=== PATIENT | male | born 1970 | race Caucasian/White ===

== ENCOUNTER 2017-03-17 16:10 | Emergency (ER) | payer BC ==
[2017-03-17] MEDS ORDERED: Morphine 2 MG/ML Syringe IVPUSH ONE ×2 (16:20→16:59)
[2017-03-17] MEDS ORDERED: Ondansetron 4 MG/2 ML SDV IVPUSH ONE (16:21)
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
[2017-03-17] MEDS ORDERED: Cyclobenzaprine 10 MG Tab PO ONE (16:59)
[2017-03-17 17:06] VITALS: BP 126/71
[2017-03-17] MEDS ORDERED: Ketorolac 30 MG/ML SDV IVPUSH ONE (17:55)
== END 2017-03-17 20:09 | disposition home or self-care (01) ==
LOC: JP.ED 16:10
DX: S32.020A Wedge compression fracture of second lumbar vertebra, initial encounter for closed fracture (principal); F17.210 Nicotine dependence, cigarettes, uncomplicated; Z98.890 Other specified postprocedural states; V86.59XA Driver of other special all-terrain or other off-road motor vehicle injured in nontraffic accident, initial encounter
CPT/HCPCS: 72131; 96374; 96375; 96376; 99284; A9270; J1885; J2270; J2405